=== PATIENT | male | born 1945 | race Two or more races ===

== ENCOUNTER 2023-07-15 09:37 | Emergency (ER) | payer OTHER, SELFPAY ==
[2023-07-15 10:11] VITALS: BP 147/42; PULSE 75; RESP 19; TEMP 36.4; O2SAT 97; BMI 33.8
--- NOTE | 2023-07-15 10:24 | ED_ITS ---
HPI - General Adult General Chief complaint: General Medical Stated complaint: L foot infection Time Seen by Provider: 07/15/23 10:23 Source: patient, RN notes reviewed and old records reviewed Mode of arrival: ambulatory History of Present Illness HPI narrative: 77-year-old male with past medical history of diabetes presenting to the ED complaining of left great toe swelling, erythema, and pus drainage x1 week. Admits may have hit toe against a table or bedpost, does not quite remember. Admits to using topical antibiotic ointment/hydrogen peroxide and expressing pus at home. Denies fever/chills, injury to other area, numbness, tingling Onset (ago): week(s) Related Data Previous Rx's Medication Instructions Recorded cephalexin 500 mg capsule 500 mg PO QID 7 days #28 caps 07/15/23 Allergies Allergy/AdvReac Type Severity Reaction Status Date / Time No Known Allergies Allergy Verified 07/15/23 10:35 Review of Systems Review of Systems: Constitutional: No Fever, No Chills ENT/Mouth: No Ear Pain, No Nasal Congestion, No sore throat, No Rhinorrhea, No Swallowing Difficulty Cardiovascular: No Chest Pain, No SOB Respiratory: No Cough Gastrointestinal: No Nausea, No Vomiting, No Abdominal pain Musculoskeletal: +joint pain, No Myalgias, + Joint Swelling Skin: + Skin Lesions, No rash Neuro: No Weakness, No Numbness, No Paresthesias Yes all other systems are reviewed and are negative Constitutional: Constitutional: Reports as per [facility] Past Medical History Attestation statement: The following information was validated with the patient. Source: old records reviewed Social History Social History Advance Directives: No Advance Directives Information Provided: Yes Physical Exam ED Vital Signs: Vital Signs - 24 hr 07/15/23 10:11 Temperature 97.6 F Pulse Rate 75 Respiratory Rate 19 Blood Pressure 147/42 H Pulse Oximetry 97 Oxygen Delivery Method Room Air BMI result Body Mass Index 33.8 Const General: cooperative, healthy appearing and no acute distress Orientation/consciousness: patient oriented x3 Limitations: no limitations HENMT Head: Yes normal to inspection and Yes atraumatic Ears: hearing grossly normal bilaterally General nose exam: Normal external nose present Face and sinus: Yes normal facial exam Eyes General: appearance normal, both eyes and all related structures EOM: EOMs intact bilaterally Neck Neck: Yes normal visual inspection and Yes no meningeal signs Resp Effort & Inspection: normal respiratory effort and no respiratory distress Cardio Rate: regular rate Skin Rashes: no rashes Wounds: no wounds Neuro General: patient oriented x3, tone normal, moves all extremities and no meningeal signs Cranial nerves: Yes CN's II-XII intact bilaterally Extrem Other: Left great toe with mild swelling and ingrown toenail noted to medial aspect with expressible pus. Tender to palpation. Neurovascularly intact. No crepitus. No warmth. No pitting edema Medications Administered Discontinued Medications Generic Name Dose Route Start Last Admin Trade Name Freq PRN Reason Stop Dose Admin Lidocaine HCl 5 ml 07/15/23 10:35 07/15/23 11:33 Lidocaine Hcl 1 % Mpf 5 Ml Vial INFILTRATI 07/15/23 10:36 5 ml ONCE ONE Administration Procedures Procedure Narrative Procedure Narrative: Ingrown Toenail Removal: Nail elevator & cuticle cutter used, no complications Dressing applied Abscess I/D Site: foot Side (if applicable): left Local Anesthetic: lidocaine 1% Amount of anesthesia used (mL): 4 Sent for culture/gram staining?: No Irrigation: No Packing used?: none Medical Decision Making Medical Decision Making MDM Narrative: 77-year-old male with past medical history of diabetes presenting to the ED complaining of left great toe swelling, erythema, and pus drainage x1 week. On exam vital signs stable, NAD, nontoxic appearing with physical exam as noted above with ingrown toenail to left great toe with appreciable pus. Concern for ingrown toenail with paronychia/pus collection and early cellulitis. R/o fracture. Low suspicion for osteomyelitis or septic joint Plan: X-ray, I&D/ingrown toenail removal Please refer to course for remaining clinical decision making, interpretation of labs/imaging results, and discussions with consultants and/or family members. Differential Diagnosis Differential Diagnoses: The differential diagnosis associated with the presentation includes As above Independent Interpretation I performed an independent interpretation of an: Plain X-Ray Radiology Impression Discussion of test interpretation with radiology: I have reviewed the radiologist's reading. Independent Historian Clinical information obtained from an independent historian. History obtained from or confirmed by: Spouse External Record Review External record reviewed: Inpatient record, Office record, Outpatient record, Prior outpatient labs, Prior outpatient radiology, Primary care record and Outside ED record Tests considered The following testing was considered but not selected: As above Prescription Management I considered prescription management with: Pain Medication and Antibiotic Chronic Conditions Patient?s care impacted by: Diabetes Discharge Plan Discharge Clinical Impression: Ingrown left big toenail, Cellulitis Patient Disposition: Home, Self-Care Instructions: Cellulitis (DC), Ingrown Nail (ED) Additional Instructions: Your ingrown toenail was removed. There was pus drainage Keflex as an antibiotic please take as prescribed Please apply warm compresses/soaks Keep area dry and clean If gets more swollen, has continued pus drainage, increasing swelling or redness return to the ED Please follow-up with a multifocal button inspector Le quitaron la u?a encarnada. Hab?a drenaje de pus. Keflex minerva antibi?juan, t?samuel seg?n lo prescrito. Por favor aplique compresas/remojos tibios. Mantenga el ?priyanka seca y limpia Si se hincha m?s, tiene drenaje continuo de pus, aumenta la hinchaz?n o el enrojecimiento, regrese al servicio de urgencias. Por favor raul un seguimiento con un pod?logo. Prescriptions: New cephalexin 500 mg capsule 500 mg PO QID 7 Days Qty: 28 0RF Referrals: Shai Santana MD [Physician] - Interventions: ED Discharge Assessment Last Done: 07/15/23 12:22 Discharge Date/Time: 07/15/23 12:23 Print Language: Cambodian
== END 2023-07-15 12:23 | disposition home or self-care (01) ==
PROVIDERS: Emergency Provider Student in an Organized Health Care Education/Training Program
DX: L60.0 Ingrowing nail (principal); L03.032 Cellulitis of left toe; M79.672 Pain in left foot
CPT/HCPCS: 10060; 11730; 73660; 99282; 99284

== ENCOUNTER 2023-09-09 | Outpatient (RCR) | payer OTHER, SELFPAY | END 2023-09-09 17:00 | disposition home or self-care (01) | LOC: HO.WCC | PROVIDERS: Visit Provider Physician Assistant | DX: E11.621 Type 2 diabetes mellitus with foot ulcer (principal); L97.829 Non-pressure chronic ulcer of other part of left lower leg with unspecified severity; L97.529 Non-pressure chronic ulcer of other part of left foot with unspecified severity; I87.2 Venous insufficiency (chronic) (peripheral); R60.0 Localized edema; Z79.4 Long term (current) use of insulin; Z79.84 Long term (current) use of oral hypoglycemic drugs; Z95.0 Presence of cardiac pacemaker | CPT/HCPCS: 99212 ==

== ENCOUNTER 2024-11-30 16:00 | Outpatient (RCR) | payer OTHER, MEDICARE, SELFPAY | END 2024-12-21 09:57 | disposition home or self-care (01) | LOC: HO.WCC 16:00 | PROVIDERS: PCP Nurse Practitioner Family; Visit Provider Surgery | DX: E11.628 Type 2 diabetes mellitus with other skin complications (principal); S41.112A Laceration without foreign body of left upper arm, initial encounter; S61.411A Laceration without foreign body of right hand, initial encounter; I10 Essential (primary) hypertension; Z95.0 Presence of cardiac pacemaker; Z79.01 Long term (current) use of anticoagulants; Z79.4 Long term (current) use of insulin; Z79.899 Other long term (current) drug therapy | CPT/HCPCS: 11042; 97597; 97598; 99213 ==